=== PATIENT | female | born 1945 | race American Indian/Alaskan Native ===

== ENCOUNTER 2021-02-24 09:21 | Outpatient (CLI) | payer MEDICARE ==
--- NOTE | 2021-02-24 12:29 | Ultrasound Report ---
ULTRASOUND ABDOMEN, COMPLETE INDICATION / CLINICAL INFORMATION: GENERALIZED ABDOMINAL PRESSURE. COMPARISON: None available. FINDINGS: PANCREAS: No significant abnormality. ABDOMINAL AORTA: No significant abnormality. IVC: No significant abnormality. LIVER: The liver is normal in size measuring 15.6 cm with diffusely echogenic appearance. Normal hepa topedal blood flow within the main portal vein. GALLBLADDER: Cholelithiasis. No evidence of wall thickening or pericholecystic fluid. BILE DUCTS: No significant abnormality. Common bile duct measures 5 mm. KIDNEYS: Right: The right kidney measures 10.0 cm. No significant abnormality. Left: The left kidney measures 10.3 cm. No significant abnormality. SPLEEN: The spleen measures 9.4 cm. No significant abnormality. FREE FLUID: None. ADDITIONAL FINDINGS: None. IMPRESSION: 1. Diffusely echogenic appearance of the liver, most commonly seen with steatosis. 2. Cholelithiasis without sonographic evidence of acute cholecystitis. Scribed by: Deborah Patel RDMS, RVT Scribed: 02/24/2021 10:28 AM I have reviewed the images, agree with this report, and edited this report as needed. Signer Name: Florencio Larson MD Signed: 02/24/2021 12:24 PM Workstation Name: [id number]
== END 2021-02-24 09:22 | disposition home or self-care (01) ==
LOC: US 09:21
PROVIDERS: ATTEND Internal Medicine
DX: K80.20 Calculus of gallbladder without cholecystitis without obstruction (principal)
CPT/HCPCS: 76700